=== PATIENT | male | born 1980 | race Caucasian/White ===

== ENCOUNTER 2025-07-30 10:14 | Outpatient (AMB) | payer OTHER, BC, SELFPAY ==
[2025-07-30 10:20] VITALS: BP 110/70; PULSE 72; O2SAT 96; BMI 27.0
--- NOTE | 2025-07-30 10:20 | MHC.OFFVIS ---
Vital Signs 07/30/25 10:20 Height 5 ft 10 in Weight 188 lb BMI 27.0 BP 110/70 Blood Pressure Location Rt brachial Position Sitting Pulse 72 Pulse Source Pulse Oximeter Pulse Oximetry (%) 96 Oxygen Delivery Method Room Air Intake Visit Reasons: Re-Establish Care - Migraine [employer] Required: No Accompanied by: Self / Same As Patient Allergies No Known Allergies Allergy (Verified 07/30/25 10:23) Medication List - Last Reconciled 07/30/25 by Giovanna Gorman CNP eletriptan 20 mg PO ONCE PRN 30 days HPI Comments Details: Albin is a 45-year-old male patient with a past medical history of MARU diagnosed with a VA, kidney stones, and ongoing headaches. This patient was seeing me at [facility] and is here today to establish care with me at [facility]. Historically, headaches has been bifrontal generally occurring 70s per week and not necessarily arising at the same time every day. He denied any migrainous features such as light or sound sensitivity historically and denied any autonomic features. He has in the past been treated for medication overuse headache with Excedrin migraine taking it up to 5 times per week though over time was not overusing medication and headaches remained still persistent. He had a 2nd opinion at the [facility] on 07/23/2024 and the general impression by the provider he saw was that headaches were related to MARU which was likely aggravating an underlying headache disorder. There was also mentioned of medication overuse as a likely contributor. He did undergo a nasal turbinate reduction surgery with correction to a deviated septum prior to his last visit with me and has been still in the healing process with some residual swelling. Overall he was doing well in terms of healing and had perhaps seen a modest reduction in his headaches since the procedure. At time of last visit, he was using eletriptan for abortive relief and was getting acupuncture as an adjunctive headache therapy which was providing some benefit. He tells me today, that since his nasal and septum procedure, he has seen a reduction in his headaches from a proximally 5-7 days per week down to no more than 3 days per week. In addition to the surgery, he has also been modifying his diet, eating habits, and has been supplementing with vitamins and minerals to optimize his health. He has more recently also started implementing more regular exercise. Overall, he is feeling better. When he does have a headache, he describes a bifrontal pressure associated with nausea and is aggravated by activity. He continues to use Eletriptan sparingly (no more than 2-3 days per week) with excellent abortive effect. Past medication trials have included: Topiramate-no benefit after a couple of weeks Amitriptyline-no benefit after a couple of weeks Depakote no benefit after a couple of weeks Number rizatriptan Sumatriptan Naratriptan Prior workup has included: -MRI of the brain 08/25/2023: No acute/subacute infarct. Minimal T2 FLAIR hyperintensities in the subcortical white matter. -Sleep study 10/09/2023: AHI 35.9 supine AHI 35.9 non supine AHI 0.0 -Labs: Sed rate for, B12 907, CRP less than 1, TSH 1.56, testosterone level 625, MMA 184 PFSH Medical History (Updated 07/30/25 @ 12:27 by Giovanna Gorman CNP) Headache MARU (obstructive sleep apnea) Surgical History (Updated 07/30/25 @ 10:22 by Kathia Turner MA) S/P correction of deviated nasal septum Social History (Updated 07/30/25 @ 10:21 by Kathia Turner MA) Alcohol intake: never Patient Tobacco Use Status: Never used Tobacco Review of Systems Const All systems reviewed & are unremarkable except as noted in HPI and below Physical Exam Vital Signs: Last Vital Signs Pulse 72 07/30/25 10:20 BP 110/70 07/30/25 10:20 Pulse Ox 96 07/30/25 10:20 Oxygen Delivery Method Room Air 07/30/25 10:20 BMI result Body Mass Index 27.0 Const General: cooperative, healthy appearing, comfortable and no acute distress Nutritional Appearance: well nourished Orientation/consciousness: patient oriented x3 Limitations: no limitations HEENT Head: Yes normal to inspection and Yes normocephalic Eyes General: appearance normal, both eyes and all related structures Visual Salas: normal visual salas by confrontation Alignment and Position: alignment normal Periorbital: periorbital findings normal Eyelids: Yes eyelids normal Conjunctivae: conjunctivae normal Sclerae: sclerae normal Neck Neck: Yes normal visual inspection and Yes full ROM General: Yes no CVA tenderness Back/Spine/Pelvis Back: no CVA tenderness Cervical Spine: normal cervical lordosis Thoracic/Lumbar Spine: thoracic and lumbar spine normal to inspection Neuro General: patient oriented x3 Cranial nerves: Yes CN's II-XII intact bilaterally and Yes Facial sensation intact/muscles of mastication intact Cognition (Neuro): normal cognition Gait exam (Neuro): Normal gait present Motor exam (neuro): 5/5 motor strength present throughout and no tremor noted Sensory Exam: double simultaneous stimulation for sensation normal Romberg Test: Negative Pupils: Normal pupillary reactivity/response: bilateral Psych Appearance: grossly normal Mental Status: mental status grossly normal Speech and movement: Normal speech and movement present and Clear speech present Affect: normal affect Attitude: cooperative Thought process: Normal thought process present Thought content: Normal thought content present Insight: Good insight present (Psych) Judgement: Good judgement present (Psych) Assessment & Plan Assessment & Plan (1) Migraine without aura and without status migrainosus, not intractable: Code(s): G43.009 - Migraine without aura, not intractable, without status migrainosus Category: Medical Plan Albin is a 45-year-old male patient with a past medical history of MARU diagnosed with a VA, kidney stones, and ongoing headaches. This patient was seeing me at [facility] and is here today to establish care with me at [facility]. He has seen a significant improvement in his headache frequency and intensity since his procedure which corrected his nasal turbinates and deviated septum. This was also likely contributing to his MARU which was evidenced on the sleep study. I think it is reasonable to assume that the MARU was likely aggravating an underlying an existing headache condition. He has been making lifestyle changes to optimize his health. He denies ever having tried acupuncture though I thought we had discussed this in the past. We did discuss acupuncture and massage as other alternative measures for adjunct headache therapy that are non pharmacological. He would like to hold off on any pharmaceutical changes for now and meet back in a couple of months. -continue eletriptan 20 mg as needed for acute therapy -recommended trial of magnesium and riboflavin in addition to his existing vitamins. He will look into this -he will also look into the availability for acupuncture and massage therapies through the MD which may be beneficial -continue to eat small and frequent meals and continue with regular exercise -follow up in 2 months or sooner if needed Medications: New eletriptan Do not take this medication more than 3 days per week 20 mg PO ONCE PRN 20 tabs 5RF migraine headache 30 days Coding Level of Care Code Est Pt Level 3 (77972) Diagnoses Migraine without aura and without status migrainosus, not intractable G43.009
--- OUTSIDE RECORDS SUMMARY | 2025-07-30 11:51 | XMS_ITS | Clinical Summary ---
Author Organization [facility] [address] [facility] Address [address] [place] [address] Phone Care Team Providers Care Durability Engineer Name Role Phone Kennedy Martinez MD Primary Care Provider Allergies No known active allergies Medications No known medications Active Problems No known active problems Social History Tobacco Use Types Packs/Day Years Used Date Smoking Tobacco: Never Smokeless Tobacco: Never Alcohol Use Standard Drinks/Week Comments Not Currently 0 (1 standard drink = 0.6 oz pur e alcohol) Sex and Gender Information Value Date Recorded Sex Assigned at Not on file Legal Sex Male 3:24 PM EDT Gender Identity Not on file Sexual Orientation Not on file Last Filed Vital Signs Vital Sign Reading Time Taken Comments Blood Pressure 125/78 04/16/2022 3:35 PM EDT Pulse 55 04/16/2022 3:35 PM EDT Temperature 36.6 C (97.9 F) 04/16/2022 3:35 PM EDT Respiratory Rate 18 04/16/2022 3:35 PM EDT Oxygen Saturation 98% 04/16/2022 3:35 PM EDT Inhaled Oxygen Concentration - - Weight 78 kg (172 lb) 04/16/2022 3:35 PM EDT Height - - Body Mass Index - - Plan of Treatment Health Maintenance Due Date Last Done Comments HIV screening 1991 Hepatitis C screening 1996 Lipid disorder screening 2018 Colon cancer screening, Colonoscopy 2023 Diabetes screening 2023 Influenza vaccine 04/25/2025 08/03/2020, , 08/31/2019, Additional history exists Covid-19 vaccine series (2024- season) 2025 Tetanus adult (Td q 10,TDAP once) 04/16/2032 04/16/2022, 03/17/2020, 10/29/2011 RSV Immunization (1 - 1-dose 75+ series) 2053 Meningococcal B Vaccine Aged Out No l onger eligible based on patient's age to complete this topic Meningococcal Vaccine Aged Out No kathrin flor eligible based on patient's age to complete this topic Pneumococcal Vaccine (2 - 49 years) Aged Out No longer eligible based on patient's age to complete this topic Insurance [facility] [place] [id number] [facility] Care Teams Durability Engineer Relationship Specialty Start Date End Date Kennedy Martinez MD [address] [place] [address] PCP - General Internal Medicine 04/16/22
--- OUTSIDE RECORDS SUMMARY | 2025-07-30 11:51 | XMS_ITS | Encounter Summary ---
Author Organization [facility] Address [address] [place] [id number] Care Team Providers Care Director Of Neurology Name Role Phone Kennedy Martinez MD Primary Care Provider Encounter Details Date Type Department Care Team (Late st Contact Info) Description 07/17/2024 Scanned Document Sleep Medicine Program at [address] [place] [phone] Jemima Mercado MD [address] [place] [phone] Social History Tobacco Use Types Packs/Day Years Used Date Smoking Tobacco: Never Smokeless Tobacco: Never Alcohol Use Standard Drinks/Week Comments Not Currently 0 (1 standard drink = 0.6 oz pur e alcohol) Sex and Gender Information Value Date Recorded Sex Assigned at Not on file Legal Sex Male 3:24 PM EDT Gender Identity Not on file Sexual Orientation Not on file documented as of this encounter Plan of Treatment Not on file documented as of this encounter Visit Diagnoses Not on filedocumented in this encounter Care Teams Director Of Neurology Relationship Specialty Start Date End Date Kennedy Martinez MD [address] [place] [address] PCP - General Internal Medicine 04/16/22 documented as of this encounter
--- OUTSIDE RECORDS SUMMARY | 2025-07-30 11:51 | XMS_ITS ---
Author Name [facility] Organization Unknown History of Medication Use Medication Directions Dispensed Refills Start Date End Date Stat us meloxicam 15 mg tablet Take 1 tablet daily with food for 14 days then as needed 2025 active meloxicam 15 mg tablet active eletriptan active Problems Problem Status Onset Date Problem Type Date of Resoluti on Source Tendinitis of right patellar tendon active 2025-07-25 ProblemAct ENS_AONECT Patellofemoral syndrome of bilateral knees active 2025 ProblemAct ENS_AONEC T Encounters Encounter Type Encounter Reason Primary Diagnosis Location Date Ambulatory [facility] 07/28/2025 Ambulatory [facility] 07/25/2025 Ambulatory [facility] 07/01/2025 Ambulatory [facility] 2025 Ambulatory [facility] 2025 Ambulatory [facility] 2025 Ambulatory [facility] 2025 Ambulatory [facility] 2025 Ambulatory [facility] 06/19/2025 Ambulatory [facility] 06/19/2025 Ambulatory [facility] 06/19/2025 Ambulatory [facility] 06/19/2025 Ambulatory [facility] 2024 Emergency Nonspecific abno rmal electrocardiogram (ECG) (EKG) [facility] 04/16/2022 Care Team Organization Name Specialty Phone Email Start Date End [facility] 05/23/2025 [facility] 04/16/2022 04/16/2022
--- OUTSIDE RECORDS SUMMARY | 2025-07-30 11:51 | XMS_ITS | Clinical Summary ---
Author Organization [facility] Address [address] [facility] [address] [place] [address] Care Team Providers Care Byproducts Extractor Name Role Phone No Pcp, Per Patient Primary Care Provider Unavai lable Allergies No known active allergies Medications amitriptyline (Elavil) 10 mg tablet Take 1 tablet by mouth once daily. 3 Active cetirizine (ZyrTEC) 10 mg tablet Take 10 mg by mouth. 4 Active eletriptan (Relpax) 20 mg tablet Take by mouth. Activ e oxyCODONE (Roxicodone) 5 mg immediate release tabletIndications: Deviated nasal septum Take 1 tablet (5 mg) by mouth every 6 (six) hours if needed for pain score 7-10 (severe) for up to 20 doses. 20 tablet 11/21/2024 4:23 PM EST 5 Active ondansetron ODT (Zofran-ODT) 4 mg disintegrating tabletIndications: Deviated nasal septum Place 1 tablet (4 mg) on the tongue and allow to dissolve by mouth every 8 (eight) hours if needed for nausea or vomiting for up to 10 doses. 10 tablet 11/21/2024 4:23 PM EST 5 Active sodium chloride ([place]) 0.65 % nasal sprayIndications:D eviated nasal septum Administer 2 sprays into each nostril four times daily. 44 mL 12 11/21/2024 4:23 PM EST 5 Active fluticasone (Flonase) 50 mcg/actuation nasal spray Administer 2 sprays into each nostril once daily. 4 Active divalproex (Depakote ER) 250 mg 24 hr tablet Take by mouth. 4 Active fluticasone (Flonase) 50 mcg/actuation nasal sprayIndications:D eviated nasal septum,Hypertrophy of nasal turbinates,Injury of nose, sequela,Chronic rhinitis Administer 2 sprays into each nostril once daily. Shake gently. Before first use, prime pump. After use, clean tip and replace cap. 16 g 11 Active cetirizine (ZyrTEC) 10 mg tabletIndications: Deviated nasal septum,Hypertrophy of nasal turbinates,Injury of nose, sequela,Chronic rhinitis Take 1 tablet (10 mg) by mouth if needed each day for allergies. 30 tablet Active Active Problems Problem Noted Date Diagnosed Date Deviated nasal septum 09/04/2024 Nasal turbinate hypertrophy 09/04/2024 Injury of nose 09/04/2024 Encounters Date Type Department Care Team Description 05/28/2025 10:00 AM EDT Office Visit [facility] Otolaryngology [address] [place] [address], [address] [place] [address] Jace Martinez MD Deviated nasal septum (Primary Dx); Hypertrophy of nasal turbinates; Injury of nose, sequela; Chronic rhinitis 05/28/2025 Travel from Last 3 Months Social History Tobacco Use Types Packs/Day Years Used Date Smoking Tobacco: Never Smokeless Tobacco: Never Tobacco Cessation:Counseling Given: Not Answered Alcohol Use Standard Drinks/Week Comments Never 0 (1 standard drink = 0.6 oz pur e alcohol) Sex and Gender Information Value Date Recorded Sex Assigned at Not on file Legal Sex Male 12:56 PM EST Gender Identity Not on file Sexual Orientation Not on file Last Filed Vital Signs Vital Sign Reading Time Taken Comments Blood Pressure 122/88 11/21/2024 4:00 PM EST Pulse 83 11/21/2024 4:00 PM EST Temperature 36 C (96.8 F) 11/21/2024 2:45 PM EST Respiratory Rate 12 11/21/2024 4:00 PM EST Oxygen Saturation 95% 11/21/2024 4:00 PM EST Inhaled Oxygen Concentration - - Weight 81.6 kg (180 lb) 11/21/2024 10:55 AM EST Height 177.8 cm (5' 10 ) 11/21/2024 10:55 AM EST Body Mass Index 25.83 11/21/2024 10:55 AM EST Plan of Treatment Upcoming Encounters Date Type Department Care Team (Late st Contact Info) Description 11/26/2025 11:00 AM EST Office Visit [facility] Otolaryngology [address] [facility], [address] [place] [address] Jace Martinez MD [address] [place] [address] Health Maintenance Due Date Last Done Comments CT Colonography 1978 Colonoscopy 1978 Colorectal Cancer Screening 1978 FIT-DNA 1978 FIT 1978 FOBT 1978 HIV Screening 1978 Lipid Panel 1978 Sigmoidoscopy 1978 Diabetes Screening 1996 Hepatitis C Screening 1996 IPV Vaccines (2 of 3 - Adult catch-up series) 10/19/1999 09/21/1999 Depression Screening 09/25/2024 COVID-19 Vaccine ( - season) 2025 Influenza Vaccine (#1) 2025 , 07/12/2020, 08/31/2019, Additional history exists DTaP/Tdap/Td Vaccines (5 - Td or Tdap) 04/16/2032 04/16/2022, 03/17/2020, 04/09/2015, Additional history exists Hepatitis B Vaccines Completed 06/02/2013, 10/29/2011, 12/27/2001 Hepatitis A Vaccines Aged Out 04/09/2015, 10/29/2011, 06/10/2001 No longer eligible based on patient's age to complete this topic MMR Vaccines Completed 11/27/2015 HIB Vaccines Aged Out No longer eligi ble based on patient's age to complete this topic HPV Vaccines Aged Out No longer eligi ble based on patient's age to complete this topic Meningococcal B Vaccine Aged Out No l onger eligible based on patient's age to complete this topic Meningococcal Vaccine Aged Out No kathrin flor eligible based on patient's age to complete this topic Pneumococcal Vaccine: Pediatrics (0 to 5 Years) and At-Risk Patients (6 to 49 Years) Aged Out No longer eligible based on patient's age to complete this topic Rotavirus Vaccines Aged Out No longer eligible based on patient's age to complete this topic Insurance [facility] Advance Directives * Full Code (Latest Code Status on File) Date Activated Date Inactivated Comments 11/21/2024 11:03 AM Care Teams Byproducts Extractor Relationship Specialty Start Date End Date No Pcp, Per Patient ESTELA PCP - General Row Boss 11/20/24
--- OUTSIDE RECORDS SUMMARY | 2025-07-30 11:51 | XMS_ITS | Encounter Summary ---
Author Organization [facility] Address [address] [place] [phone] Care Team Providers Care Medical Collections Specialist Name Role Phone Kennedy Martinez MD Primary Care Provider Encounter Details Date Type Department Care Team (Late st Contact Info) Description 09/20/2024 Abstract Sleep Medicine Program at [address] [place] [phone] Jemima Mercado MD [address] [place] [phone] Social History Tobacco Use Types Packs/Day [...] on filedocumented in this encounter Care Teams Medical Collections Specialist Relationship Specialty Start Date End Date Kennedy Martinez MD [address] [place] [address] PCP - General Internal Medicine 04/16/22 documented as of this encounter
--- OUTSIDE RECORDS SUMMARY | 2025-07-30 11:51 | XMS_ITS | Clinical Summary ---
Author Organization [facility] Address [address] [place] [phone] Phone Care Team Providers Care Peace Officer Name Role Phone Kennedy Martinez MD Primary Care Provider Allergies No known active allergies Medications cetirizine (ZYRTEC) 10 MG tablet Take 10 mg by mouth. 05/28/2024 Active eletriptan (RELPAX) 20 MG tablet 05/31/2024 Active Active Problems Problem Noted Date Diagnosed Date Severe obstructive sleep apnea 06/14/2024 Allergic rhinitis due to [place] house dust luiza e 06/14/2024 Migraine without aura and wi thout status migrainosus, not intractable 06/14/2024 Immunizations Immunization Administration Dates Next Due Influenza, Unspecified Formulation 05/29/2018 Social History Tobacco Use Types Packs/Day Years Used Date Smoking Tobacco: Never Assessed Education Answer Date Recorded Are you interested in more education? Not on jaun e 01/31/2024 Are you concerned about learning? Not on file 01/31/2024 No 01/31/2024 No 01/31/2024 Digital Access Answer Date Recorded No 01/31/2024 No 01/31/2024 Reliable internet access at home? Not on file 01/31/2024 Device with a working camera? Not on file Intimate Partner Violence Answer Date R ecorded Are you denied basic needs s uch as food, clothing, or medical care? No 10/09/2024 In the past 12 months have y ou been in a relationship with a person who hurts, threatens, or tries to control you? No 10/09/2024 Are you denied basic needs s uch as food, clothing, or medical care? No 10/09/2024 In the past 12 months have y ou been in a relationship with a person who hurts, threatens, or tries to control you? No 10/09/2024 Sex and Gender Information Value Date Recorded Sex Assigned at Male 01/31/2024 3:41 PM EDT Legal Sex Male 10:18 AM EDT Gender Identity Male 01/31/2024 3:41 PM EDT Sexual Orientation Don't know 01/31/2024 3: 41 PM EDT Last Filed Vital Signs Vital Sign Reading Time Taken Comments Blood Pressure 118/80 10/09/2024 11:11 AM EST Pulse 69 10/09/2024 11:11 AM EST Temperature 36.1 C (97 F) 07/23/2024 10:04 AM EDT Respiratory Rate - - Oxygen Saturation 99% 10/09/2024 11:11 AM EST Inhaled Oxygen Concentration - - Weight 82.1 kg (181 lb) 10/09/2024 11:11 AM EST Height 152.4 cm (5') 10/09/2024 11:11 AM EST Body Mass Index 35.35 10/09/2024 11:11 AM EST Plan of Treatment Health Maintenance Due Date Last Done Comments LIPID PANEL 1978 DEPRESSION SCREENING 1990 SMOKING Hx and SMOKELESS TOBACCO SCREENING 1991 HEPATITIS C SCREENING 1996 HIV ONE-TIME SCREENING (18-6 5 YEARS) 1996 SCREENING FOR DIABETES 2013 COLOGUARD 2023 COLONOSCOPY 2023 COLORECTAL CANCER SCREENING 2023 FIT TEST 2023 FOBT 2023 SIGMOIDOSCOPY 2023 VIRTUAL COLONOSCOPY 2023 INFLUENZA VACCINE (#1) 2025 , 05/29/2018 COVID-19 VACCINE (1 - 2024-2 6 season) 2025 Adult Td,Tdap Booster 03/17/2030 03/17/2020 , 10/29/2011 HEPATITIS A VACCINES Aged Out No long er eligible based on patient's age to complete this topic HIB VACCINES Aged Out No longer eligi ble based on patient's age to complete this topic MENINGOCOCCAL VACCINES (ACWY) Aged Out No longer eligible based on patient's age to complete this topic MENINGOCOCCAL VACCINES (B) Aged Out N o longer eligible based on patient's age to complete this topic PNEUMOCOCCAL VACCINES (0-49 years) Aged Out No longer eligible b ased on patient's age to complete this topic Medical Devices Not on file Insurance [facility] Care Teams Peace Officer Relationship Specialty Start Date End Date Kennedy Martinez MD [address] [place] [phone] PCP - General Internal Medicine 04/19/24 Additional Source Comments The information contained in this document represents components of the legal health record. It is not the complete legal health record.[facility]
--- OUTSIDE RECORDS SUMMARY | 2025-07-30 11:51 | XMS_ITS | Encounter Summary ---
Author Organization [facility] Address [address] [place] [address] Care Team Providers Care Venue Coordinator Name Role Phone Kennedy Martinez MD Primary Care Provider Encounter Details Date Type Department Care Team (Late st Contact Info) Description 06/11/2024 Scanned Document Sleep Medicine Program at [address] [place] [phone] Sakshi Rodriguez, AGATHA Social History Tobacco Use Types Packs/Day Years [...] on filedocumented in this encounter Care Teams Venue Coordinator Relationship Specialty Start Date End Date Kennedy Martinez MD [address] [place] [address] PCP - General Internal Medicine 04/16/22 documented as of this encounter
== END 2025-07-30 11:13 | disposition home or self-care (01) ==
PROVIDERS: PCP Pediatrics; Visit Provider Nurse Practitioner
DX: G43.009 Migraine without aura, not intractable, without status migrainosus (principal)
CPT/HCPCS: 99213

== ENCOUNTER → 2025-07-30 10:14 | Outpatient (BNVA) | payer OTHER, BC, SELFPAY | PROVIDERS: PCP Pediatrics; Visit Provider Nurse Practitioner | DX: G43.009 Migraine without aura, not intractable, without status migrainosus (principal); G47.33 Obstructive sleep apnea (adult) (pediatric) | CPT/HCPCS: 99212 ==